=== PATIENT | male | born 1965 | race Caucasian/White ===

== ENCOUNTER 2023-06-07 08:53 | Day surgery (SDC) | payer OTHER ==
[~2023-06-07] VITALS: Ht 182.9 cm; Wt 107.9 kg
[2023-06-07] VITALS (13 sets, daily range): BP systolic 96–130; BP diastolic 52–91
[~2023-06-07 08:53] MED LIST: CATAPRES0.1 MG PO; Cyclobenzaprine5 MG PO; HYDCHL25 PO; KLOR-CON 1010 ME7 PO; MULTI VITAMIN1 EACH PO; NEBIVOLOL HCL20 MG PO; Ramipril10 MG PO; SPIRONOLACTONE25 MG PO; VITAMIN B122500 MC1
--- NOTE | 2023-06-07 09:26 | NUR ---
Ambulatory in Day Surgery History, Chart, Medications and Allergies reviewed before start of procedure. Pre-Op teaching done. Pt verbalizes understanding. Patient States Post-Procedure ride home has been arranged.
--- NOTE | 2023-06-07 10:20 | NUR ---
06/07/23 [address] JUAREZ; SEE ANESTHESIA RECORDS.
--- NOTE | 2023-06-07 12:42 | NUR ---
CALL MADE TO DR CHOWDHURY REPORTING DISTENDED BELLY AND ASSOCIATED PAIN FOR PT THAT IS NOT IMPROVING, DR CHOWDHURY ADVISED TO OBSERVE PT FOR A COUPLE HOURS AND CALL IF CONDITION BECOMES WORSE.
--- NOTE | 2023-06-07 14:43 | NUR ---
1440 ABDOMEN STILL DISTENDED BUT BECOMING SOFTER COMPARED TO INITIAL ASSESSMENT. DRESSING REMAINS CDI. VSS. PT BREATHING RA. PAIN IS UPWARDS OF 8/10 WHEN PT BEGINS TO SIT UP IN BED, HE BECOMES CLAMMY AND UNABLE TO CONTINUE TO SIT UP. 0.5MG DILAUDID GIVEN FOR SEVERE PAIN, LEFT TO SENIOR ANALY[facility] [employer] PAIN RX FROM PHARMACY.
--- NOTE | 2023-06-07 15:25 | NUR ---
DISCHARGE NOTE PT A&OX4, VSS, BREATHING RA, PAIN IS CONTROLLED AT A 3/10. ABDOMINAL DISTENSION HAS SLIGHTLY DECREASED, STOMACH IS BECOMING SLIGHTLY SOFTER TO THE TOUCH. DRESSING HAS SCANT BLOODY DRAINIGE, COVERED WITH GAUZE AND A PIECE OF TAPE. Discharge instructions reviewed with patient. Patient verbalizes understanding. Copy given to patient to take home. Patient up to Ambulate independently. Gait steady.SBAR GIVEN TO OMER Guerra RN
== END 2023-06-07 15:34 | disposition home or self-care (01) ==
LOC: ORSCMMR 08:53 → ORD 10:15 → ORSCMMR 15:34
PROVIDERS: Surgery
PROC: 0DH68UZ Insertion of Feeding Device into Stomach, Via Natural or Artificial Opening Endoscopic (ICD-10-PCS; principal; 2023-06-07 10:15)
DX: C09.0 Malignant neoplasm of tonsillar fossa (principal); K21.9 Gastro-esophageal reflux disease without esophagitis; I10 Essential (primary) hypertension; G47.33 Obstructive sleep apnea (adult) (pediatric); Z79.899 Other long term (current) drug therapy
CPT/HCPCS: A9270; J0690; J1100; J1170; J2405; J2704; J3010; J7120

== ENCOUNTER 2023-07-06 06:19 | Day surgery (SDC) | payer OTHER ==
[2023-07-06 11:42] VITALS: BP 115/65
[2023-07-06] MEDS ORDERED: PERCOCET 10-321 EAC5 PO (11:50)
[2023-07-06] MEDS ORDERED: SPIR25 PO (11:51)
[2023-07-06] MEDS ORDERED: POTA10T PO (11:51)
[2023-07-08] MEDS ORDERED: METO10 PO (15:41)
[2023-07-08] MEDS ORDERED: ONDA4ODT MM (15:41)
== END 2023-07-06 12:50 | disposition home or self-care (01) ==
LOC: ATC 06:19
DX: E86.0 Dehydration (principal); R13.10 Dysphagia, unspecified; C10.8 Malignant neoplasm of overlapping sites of oropharynx; I11.0 Hypertensive heart disease with heart failure; I50.30 Unspecified diastolic (congestive) heart failure; G47.33 Obstructive sleep apnea (adult) (pediatric); F17.210 Nicotine dependence, cigarettes, uncomplicated; Z79.899 Other long term (current) drug therapy
CPT/HCPCS: 96360; J7030

== ENCOUNTER 2023-07-09 06:32 | Day surgery (SDC) | payer OTHER ==
[~2023-07-09] VITALS: Ht 182.9 cm; Wt 102.5 kg
[~2023-07-09 06:32] MED LIST changes: -NYSTATIN100000 U10; -Primalev 10-301 EACH PO
[2023-07-09] MEDS ORDERED: Primalev 10-301 EACH PO (07:03)
[2023-07-09 07:10] VITALS: BP 108/76
[2023-07-09 07:19] VITALS: BP 108/78
[2023-07-09 07:30] VITALS: BP 114/72
[2023-07-09 07:45] VITALS: BP 111/76
[2023-07-09 09:00] VITALS: BP 142/81
--- NOTE | 2023-07-09 09:00 | NUR ---
PATIENT RETURNED FROM THE [facility] AND PLACED ON THE MONITOR. PATIENT IS AWAKE CALL LIGHT IN REACH. SBAR FROM SHAHID CABRERA. BROUGHT TO THE BEDSIDE. UNABLE TO PERFORM PROCEDURE. CLOTH DOTS X [address] AND DRESSING CDI. NO PAIN NOTED FROM THE PATIENT.
--- NOTE | 2023-07-09 09:22 | NUR ---
PATIENT UP OOB DRESSED. TO THE RESTRROM. PIV REMOVED. CATH TIP INTACT AND PRESSURE DRESSING APPLIED. PATIENT DOES NOT WANT TO EAT OR DRINK ANYTHING DUE TO CONTINUED QUEASINESS. PATIENT HAD REGLAN EARLIER AND IS PASSING GAS, NAUSEA IS EASING. REVIEWED DISCHARGE INSTRUCTIONS WITH THE PATIENT AND AND . COPIES GIVEN. SCHEDULING WILL CONTACT THEM OR DR. MONDRAGON'S OFFICE WILL CONTACT THEM REGARDING THE NEXT STEP FOR SURGICAL PLACEMENT OF THE G TUBE. PATIENT IS DISCHARED HOME WITH ALL BELONGINGS VIA WHEELCHAIR WITH CLAM BED WORKER.
== END 2023-07-09 09:33 | disposition home or self-care (01) ==
LOC: MHTC 06:32
DX: C01 Malignant neoplasm of base of tongue (principal); Z87.891 Personal history of nicotine dependence
CPT/HCPCS: 49440; 99152; 99153; C1769; C1887; J2250; J2765; J3010; J7030; J7040; Q9967

== ENCOUNTER → 2023-07-09 | Outpatient (CLI) | payer OTHER ==
[~2023-07-09] MED LIST changes: +METO10 PO; +NYSTATIN100000 U10; +ONDA4ODT MM; +PERCOCET 10-321 EAC5 PO; +POTA10T PO; +Primalev 10-301 EACH PO; +SPIR25 PO
[2023-07-09 12:00] LABS: BASOPHILS ABSOLUTE AUTO 0.02 K/mm3 (0.00-0.23); BASOPHILS PERCENT AUTO 1 % (0-2); EOSINOPHILS ABSOLUTE AUTO 0.04 K/mm3 (0.00-0.68); EOSINOPHILS PERCENT AUTO 1 % (0-6); Hematocrit 40.6 % (37.0-53.0); Hemoglobin 14.4 g/dL (13.5-17.5); IMMATURE GRAN ABSOLUTE AUTO 0.02 K/mm3 (0.00-0.10); IMMATURE GRAN PERCENT AUTO 1 % (0-1); LYMPHOCYTES ABSOLUTE AUTO 0.49 K/mm3 (0.84-5.20); LYMPHOCYTES PERCENT AUTO 13 % (21-46); MONOCYTES ABSOLUTE AUTO 0.34 K/mm3 (0.16-1.47); MONOCYTES PERCENT AUTO 9 % (4-13); Mean Corpuscular HGB 30.8 pg (26.0-34.0); Mean Corpuscular HGB Conc 35.5 g/dL (31.5-36.5); Mean Corpuscular Volume 87 fL (80-100); Mean Platelet Volume 9.8 fL (9.1-12.4); NEUTROPHILS ABSOLUTE AUTO 2.79 K/mm3 (1.96-9.15); NEUTROPHILS PERCENT AUTO 76 % (41-73); Platelet Count 205 K/mm3 (150-400); RDW Coefficient Variation 12.4 % (11.7-14.2); RDW Standard Deviation 39.1 fL (35.1-46.3); Red Blood Cell Count 4.67 M/mm3 (4.30-5.90)
[2023-07-09 12:12] LABS: Albumin, Blood 3.6 g/dL (3.4-5.0); Albumin/Globulin Ratio 1.1 (0.8-1.8); Bilirubin, Total 0.5 mg/dL (0.1-1.0); Bun/Creatinine Ratio 23.1 (12.0-20.0); Calcium, Blood 9.4 mg/dL (8.5-10.1); Creatinine, Blood 1.47 mg/dL (0.60-1.20); Globulin, Blood 3.2 g/dL (2.2-4.0); Total Protein, Blood 6.8 g/dL (6.4-8.2)
== END | disposition home or self-care (01) ==
LOC: LAB 10:30 → LAB SHORT 10:30
PROVIDERS: Internal Medicine Hematology & Oncology
DX: C09.9 Malignant neoplasm of tonsil, unspecified (principal)
CPT/HCPCS: 80053; 85025

== ENCOUNTER 2023-07-12 06:13 | Day surgery (SDC) | payer OTHER ==
[2023-07-12] VITALS (19 sets, daily range): BP systolic 111–146; BP diastolic 75–89
[~2023-07-12] VITALS: Ht 182.9 cm; Wt 94.6 kg
[~2023-07-12 06:13] MED LIST changes: +Primalev 10-301 EACH PO
[2023-07-12] MEDS ORDERED: NYSTATIN100000 U10 (07:03)
--- NOTE | 2023-07-12 07:19 | NUR ---
Ambulatory in Day Surgery Patient confirms NPO status and agrees with scheduled surgery. Pre-Op teaching done. Pt verbalizes understanding. History, Chart, Medications and Allergies reviewed before start of procedure.Patient States Post-Procedure ride home has been arranged.
--- NOTE | 2023-07-12 07:58 | NUR ---
07/12/23 0757 Eron Rehman PRIOR TO START OF PROCEDURE, I NOTED RASH ON BOTH SIDES OF LOWER ABDOMEN FROM CLIPPING
--- NOTE | 2023-07-12 10:18 | NUR ---
PT RESTING, RISES TO VOICE AND TOUCH. PT HAS THREE INCISION SITES ON ABDOMEN COVERED WITH STERI STRIPS THAT HAVE SCANT AMOUNT OF DRY SEROSANGUINEOUS MATERIAL PRESENT AND ONE PEG TUBE PLACED.
--- NOTE | 2023-07-12 13:05 | NUR ---
LATE ENTRY. AT 1230 WHEN PT REPORTED SHARP AND BURNING PAIN IN ABDOMEN, SECOND DOSE OF ORDERED PAIN MEDICATION OFFERED TO PATIENT BUT HE REFUSED. PT TAKEN OF O2, VSS. PT REPOSITIONED, REPORTS PASSING GAS HELPS WITH THE PAIN. PT REQUESTING TO GO HOME, REFUSING NAUSEA.
--- NOTE | 2023-07-12 13:08 | NUR ---
LATE ENTRY. AT 1245 PT REPORTS BEING READY TO GO HOME. PTS INCISION SITES ARE MOSTLY CDI WITH SCANT AMOUNT OF SEROSANGUINEOUS MATERIAL PRESENT AND PEG TUBE. Ambulatory in Day Surgery Discharge instructions reviewed with patient. Patient verbalizes understanding. Copy given to patient to take home. Dressing to procedure site clean, dry, intact with no visible drainage, swelling, erythema or bruising noted. Patient States Post-Procedure ride home has been arranged. Discharged via wheelchair to private car for ride home. ALL BELONGINGS RETURNED TO PATIENT.
--- NOTE | 2023-07-12 13:41 | NUR ---
BEFORE PATIENT LEFT STEP DOWN, PT'S CONFIDED TO ME THAT SHE AND CAROLYNE DID NOT HAVE MUCH EDUCATION ON HOW TO USE OR CARE FOR THE PEG TUBE. THEY DID NOT WANT TO WAIT FOR ME TO FIND RESOURCES BEFORE THEY DISCHARGE. AFTER DISCHARGING THE PATIENT, I REACHED OUT TO MY CHARGE NURSE, DIVYA FOSTER RN AND TOGETHER WE CONTACTED ALEXANDREA ENRIQUEZ RN IN PALLIATIVE CARE FOR RESOURCE HELP. ALEXANDREA TOOK THE PATIENT'S INFORMATION AND STATES SHE WILL BE REACHING OUT TO THE PATIENT AND FAMILY WITH INFORMATION/RESOURCES ON HOW TO USE AND CARE FOR THE NEWLY PLACED PEG TUBE.
== END 2023-07-12 23:33 | disposition home or self-care (01) ==
LOC: ORSCMMR 06:13 → ORD 09:45 → ORSCMMR 23:33
PROVIDERS: Surgery
PROC: 0DH68UZ Insertion of Feeding Device into Stomach, Via Natural or Artificial Opening Endoscopic (ICD-10-PCS; principal; 2023-07-12 07:30)
DX: C02.9 Malignant neoplasm of tongue, unspecified (principal); I10 Essential (primary) hypertension; G47.33 Obstructive sleep apnea (adult) (pediatric); Z79.899 Other long term (current) drug therapy
CPT/HCPCS: A9270; C1769; J0690; J1100; J1170; J1790; J1885; J2371; J2405; J2704; J3010; J7120

== ENCOUNTER 2023-07-13 00:12 | Day surgery (SDC) | payer OTHER ==
[~2023-07-13 00:12] MED LIST changes: +NYSTATIN100000 U10
[2023-07-13 11:50] VITALS: BP 122/70
== END 2023-07-13 12:54 | disposition home or self-care (01) ==
LOC: ATC 00:12
DX: E86.0 Dehydration (principal); R13.10 Dysphagia, unspecified; I11.0 Hypertensive heart disease with heart failure; I50.30 Unspecified diastolic (congestive) heart failure; G47.33 Obstructive sleep apnea (adult) (pediatric); Z79.899 Other long term (current) drug therapy
CPT/HCPCS: 96360; J7030

== ENCOUNTER 2023-07-20 00:53 | Day surgery (SDC) | payer OTHER ==
[2023-07-20 11:35] VITALS: BP 101/67
== END 2023-07-20 12:44 | disposition home or self-care (01) ==
LOC: ATC 00:53
DX: E86.0 Dehydration (principal); R13.10 Dysphagia, unspecified; C10.8 Malignant neoplasm of overlapping sites of oropharynx; I11.0 Hypertensive heart disease with heart failure; I50.30 Unspecified diastolic (congestive) heart failure; G47.33 Obstructive sleep apnea (adult) (pediatric); Z79.899 Other long term (current) drug therapy
CPT/HCPCS: 96360; J7030

== ENCOUNTER 2023-07-27 02:10 | Day surgery (SDC) | payer OTHER ==
[2023-07-27 11:23] VITALS: BP 82/54
== END 2023-07-27 12:32 | disposition home or self-care (01) ==
LOC: ATC 02:10
DX: E86.0 Dehydration (principal); R13.10 Dysphagia, unspecified; C10.8 Malignant neoplasm of overlapping sites of oropharynx; R63.4 Abnormal weight loss; I50.30 Unspecified diastolic (congestive) heart failure; I11.0 Hypertensive heart disease with heart failure; G47.33 Obstructive sleep apnea (adult) (pediatric); F17.210 Nicotine dependence, cigarettes, uncomplicated
CPT/HCPCS: 96360; J7030

== ENCOUNTER 2023-07-29 03:22 | Day surgery (SDC) | payer OTHER ==
[2023-07-29 09:32] VITALS: BP 92/54
== END 2023-07-29 10:36 | disposition home or self-care (01) ==
LOC: ATC 03:22
DX: E86.0 Dehydration (principal); C09.0 Malignant neoplasm of tonsillar fossa; F17.210 Nicotine dependence, cigarettes, uncomplicated; Z88.8 Allergy status to other drugs, medicaments and biological substances; Z79.899 Other long term (current) drug therapy
CPT/HCPCS: 96360; J7030

== ENCOUNTER 2023-08-03 09:37 | Day surgery (SDC) | payer OTHER ==
[2023-08-03 09:52] VITALS: BP 113/69
== END 2023-08-03 10:56 | disposition home or self-care (01) ==
LOC: ATC 09:37
DX: E86.0 Dehydration (principal); R13.10 Dysphagia, unspecified; I10 Essential (primary) hypertension; F17.290 Nicotine dependence, other tobacco product, uncomplicated; Z88.8 Allergy status to other drugs, medicaments and biological substances; Z79.899 Other long term (current) drug therapy
CPT/HCPCS: 96360; J7030

== ENCOUNTER 2023-08-10 02:30 | Day surgery (SDC) | payer OTHER ==
[2023-08-10 12:15] VITALS: BP 110/72
== END 2023-08-10 12:57 | disposition home or self-care (01) ==
LOC: ATC 02:30
DX: E86.0 Dehydration (principal); R13.10 Dysphagia, unspecified; C09.9 Malignant neoplasm of tonsil, unspecified
CPT/HCPCS: 96360; J7030

== ENCOUNTER 2023-08-17 02:35 | Day surgery (SDC) | payer OTHER ==
[2023-08-17 11:15] VITALS: BP 139/88
== END 2023-08-17 12:15 | disposition home or self-care (01) ==
LOC: ATC 02:35
DX: E86.0 Dehydration (principal); R13.10 Dysphagia, unspecified; I10 Essential (primary) hypertension; F17.290 Nicotine dependence, other tobacco product, uncomplicated
CPT/HCPCS: J7030

== ENCOUNTER 2023-08-24 01:14 | Day surgery (SDC) | payer OTHER ==
[2023-08-24 11:07] VITALS: BP 115/82
== END 2023-08-24 12:27 | disposition home or self-care (01) ==
LOC: ATC 01:14
DX: E86.0 Dehydration (principal); R13.10 Dysphagia, unspecified; I10 Essential (primary) hypertension
CPT/HCPCS: 96360; J7030

== ENCOUNTER 2023-08-31 11:03 | Day surgery (SDC) | payer OTHER ==
[2023-08-31 11:37] VITALS: BP 119/83
== END 2023-08-31 12:38 | disposition home or self-care (01) ==
LOC: ATC 11:03
DX: E86.0 Dehydration (principal); R13.10 Dysphagia, unspecified; F17.200 Nicotine dependence, unspecified, uncomplicated
CPT/HCPCS: 96360; J7030

== ENCOUNTER 2023-09-07 10:55 | Day surgery (SDC) | payer OTHER ==
[2023-09-07 10:54] VITALS: BP 130/85
== END 2023-09-07 12:06 | disposition home or self-care (01) ==
LOC: ATC 10:55
DX: E86.0 Dehydration (principal); R13.10 Dysphagia, unspecified; F17.200 Nicotine dependence, unspecified, uncomplicated
CPT/HCPCS: 96360; J7030